=== PATIENT | male | born 1995 | race Caucasian/White ===

== ENCOUNTER 2018-09-19 06:24 | Day surgery (SDC) | payer BC ==
[~2018-09-19] VITALS: Ht 184.2 cm; Wt 122.0 kg
[~2018-09-19 06:24] MED LIST: BUPIVACAINE-EPI 0.25%-1:200000 MPF 30 ML VIAL. ONE
[2018-09-19] MEDS ORDERED: PROCHLORPERAZINE 10 MG/2 ML VIAL. IV PRN (07:00)
[2018-09-19] MEDS ORDERED: HYDROmorphone 2 MG/ML VIAL IV PRN (07:00)
[2018-09-19] MEDS ORDERED: IV RINGERS,LACTATED 1000ML 1,000 ML IV SCH (07:00)
[2018-09-19] MEDS ORDERED: MORPHINE SULFATE 2 MG/ML VIAL. IV PRN (07:00)
[2018-09-19] MEDS ORDERED: fentaNYL PF VIAL 100 MCG/2 ML VIAL IV PRN ×2 (07:00)
[2018-09-19] MEDS ORDERED: ONDANSETRON PF 4 MG/2 ML VIAL. IV PRN (07:00)
[2018-09-19] MEDS ORDERED: fentaNYL PF VIAL 100 MCG/2 ML VIAL ONE (07:03)
[2018-09-19] MEDS ORDERED: DEXAMETHASONE SOD PHOS 4 MG/ML VIAL ONE (07:03)
[2018-09-19] MEDS ORDERED: FAMOTIDINE 20 MG/2 ML VIAL ONE (07:03)
[2018-09-19] MEDS ORDERED: SUCCINYLCHOLINE 200 MG/10 ML VIAL. ONE (07:03)
[2018-09-19] MEDS ORDERED: ONDANSETRON PF 4 MG/2 ML VIAL. ONE (07:03)
[2018-09-19] MEDS ORDERED: PROPOFOL 20 ML IV ONE (07:03)
[2018-09-19] MEDS ORDERED: LIDOCAINE 2% PF 5 ML VIAL. ONE (07:03)
[2018-09-19] MEDS ORDERED: KETAMINE HCL IN NACL, ISO-OSM 50 MG/5 ML SYRINGE ONE (07:03)
[2018-09-19] MEDS ORDERED: MIDAZOLAM HCL/PF 2 MG/2 ML VIAL. ONE (07:04)
[2018-09-19] MEDS ORDERED: ACETAMINOPHEN 500 MG TABLET PO ONE (07:15)
[2018-09-19] MEDS ORDERED: ceFAZolin SODIUM 3 GM in IV DEXTROSE 5% 100ML 100 ML IV PRN (08:00)
[2018-09-19] MEDS ORDERED: GLYCOPYRROLATE 1 MG/5 ML VIAL. ONE (08:05)
[2018-09-19] MEDS ORDERED: SEVOFLURANE 61 TO 120 MINUTES. IH ONE (08:52)
--- NOTE | 2018-09-19 09:07 | PDOC4 ---
Operative Note Operative Note Date: 09/19/2018 Preoperative diagnosis: Pilonidal cyst Postoperative diagnosis: Same Procedure: Pilonidal cystectomy Surgeon: Sadiq Specimen: Pilonidal cyst Dictation: Patient is a 23-year-old male is complained of multiple episodes of infection and around the pilonidal cyst with chronically draining wound. Procedure of cystectomy was explained to the patient detail risk benefits were also discussed including bleeding infection alternatives to this procedure also discussed with the patient is seemed to understand and gave both verbal and written consent to have the procedure performed. Patient was taken to the operating room placed in supine position general anesthesia was initiated once patient was sleep and intubated was then repositioned in the prone positioning his buttocks was prepped and draped usual sterile fashion is Betadine scrub and solution. There were 2 openings fairly close together for the pilonidal cyst and a tract was proximally 2 cm above the superior opening. This area was all injected with quarter percent Marcaine with epinephrine and elliptical incision was made with 10 blade scalpel incorporating the tract and pilonidal cyst openings this is carried down through the subcutaneous tissue using electrocautery divided hemostasis all the way down to the fascia and removed and sent for pathology. Wound was then closed the deep layer of running 0 Vicryl and more superficial layer closed with a running 3-0 Vicryl and then the skin was reapproximated with horizontal mattress sutures of 2-0 nylon. Wound was then dressed with 4 x 4's and Medipore tape. Patient was repositioned in the supine positioning awakened next bated operating room taken to recovery in stable condition all sponge instrument needle counts listed as correct estimate blood loss 15 mL ALLEN CHAHAL MD September 19, 2018 09:07
--- NOTE | 2018-09-19 09:08 | DISCH ---
DISCHARGE INSTRUCTIONS Condition on Discharge Condition on Discharge: Stable Activity After Discharge Activity Instructions for Disc: Avoid exertion Diet after Discharge Diet after Discharge: Regular Wound Incision Care Other wound/incision instructi: May shower in 24 hours Contacting the after DC Call your doctor for: If your condition worsens Follow-Up Follow up with: Dr. Chahal in 2 weeks ALLEN CHAHAL MD September 19, 2018 09:08
[2018-09-19] MEDS ORDERED: OXYC1TAB15 PO (09:15)
[2018-09-19] MEDS ORDERED: oxyCODONE/APAP 5/325 1 TAB TABLET PO ONE ×2 (09:30)
[2018-09-19 10:08] VITALS: BP 163/81
--- NOTE | 2018-09-20 20:06 | PATHOLOGY ---
[facility] Accession Number: [id number] . 01 Material submitted: . gluteal cleft - PILONIDAL CYST . 01 Clinical history: . Pilonidal cyst. . 02 Diagnosis: Skin and subcutaneous tissue, pilonidal cystectomy: - Pilonidal cyst/sinus showing acute and chronic inflammation. ([facility] 09/20/2018) QTP/09/20/2018 . 02 Comment: There is no evidence of malignancy. ([facility] 09/20/2018) . 02 Electronically signed: . Armando Cruz MD, Pathologist NPI- [id number] . 01 Gross description: . Received in formalin labeled "Hugo Diaz IV, pilonidal cyst" is an irregular excision of -white skin and underlying yellow- lobulated soft tissue measuring 10.1 x 3.0 x 3.0 cm in total dimensions. The skin surface displays multiple red- ulcerated areas ranging from 0.6-1.0 cm in greatest dimension. Upon sectioning, the cut surface displays a sinus tract measuring 8.5 x 1.2 x 1.1 cm. A sales account representative section is submitted in cassette A1. ([facility]; 09/19/2018) SYC/SYC . 02 Pathologist provided ICD-10: L05.91, L08.9 . 02 CPT . 140049 Specimen Comment: A courtesy copy of this report has been sent to Specimen Comment: [phone]. Specimen Comment: Report sent to Performed at: [address], [place], [place] [id number] MD Tunde Wilson MD Phone: [phone] Performed at: 02 [facility] [address] [place], [place] [id number] MD Armando Cruz MD Phone: [phone]
== END 2018-09-19 10:30 | disposition home or self-care (01) ==
LOC: SURG 06:24
PROVIDERS: ATTEND Surgery
DX: L05.91 Pilonidal cyst without abscess (principal); I10 Essential (primary) hypertension; Z98.890 Other specified postprocedural states; Z87.891 Personal history of nicotine dependence; Z88.1 Allergy status to other antibiotic agents; Z88.8 Allergy status to other drugs, medicaments and biological substances
CPT/HCPCS: 11771; A7015; J0330; J1100; J2001; J2250; J2405; J2704; J3010; J3490; J7120; 88304; A4461